=== PATIENT | female | born 1980 | race Caucasian/White ===

== ENCOUNTER → 2017-09-01 | Outpatient (CLI) | payer BC ==
[~2017-09-01] MED LIST: ACHD5005 PO; AMOX-355 PO; FLUT9.9S NS; HYOS-20 PO; PRD20T PO; PREN1TAB39
--- NOTE | 2017-09-01 16:00 | Diagnostic Imaging Report ---
INDICATION: Right leg pain and swelling. EXAMINATION: Multiple views of the right tibia and fibula were obtained at 4:08 p.m. FINDINGS: Alignment at the knee and ankle is normal. The tibia and fibula are intact. No fractures are seen. Soft tissues are unremarkable. IMPRESSION: No acute abnormality is detected. Dictated by: Dictated on workstation # [id number]
--- NOTE | 2017-09-01 16:29 | Diagnostic Imaging Report ---
INDICATION: Leg pain TECHNIQUE: Grayscale with color-flow and Doppler waveform evaluation of the right lower extremity deep venous system. CORRELATION STUDY: None FINDINGS: Color and grayscale sonographic images demonstrate no intraluminal defect within the visualized portion of the common femoral, superficial femoral and/or popliteal veins to suggest thrombus formation. These vessels demonstrate normal response to compression and augmentation. No soft tissue fluid collection. IMPRESSION: 1. Negative for deep venous thrombosis of the right leg. Dictated by: Dictated on workstation # [id number]
--- NOTE | 2017-09-02 08:35 | Diagnostic Imaging Report ---
INDICATION: Right knee pain and swelling. EXAMINATION: Three views of the right knee were obtained at 4:08 p.m. FINDINGS: The alignment is normal. The joint spaces are well maintained. The articular surfaces are smooth. No fracture, dislocation or effusion is seen. There is a linear sclerotic focus in the distal femur which appears benign. IMPRESSION: No acute abnormality is detected. Dictated by: Dictated on workstation # [id number]
== END ==
LOC: RAD 15:33
PROVIDERS: ATTEND Nurse Practitioner Family
DX: M79.604 Pain in right leg (principal); R22.41 Localized swelling, mass and lump, right lower limb
CPT/HCPCS: 73562; 73590

== ENCOUNTER → 2017-09-06 | Outpatient (CLI) | payer BC ==
--- NOTE | 2017-09-06 10:27 | Diagnostic Imaging Report ---
INDICATION: Bilateral leg cyanosis. Bilateral ankle-brachial indices were performed utilizing segmental pressures of the brachial arteries and posterior tibial and dorsalis pedis arteries. The waveforms are unremarkable. Ankle brachial indices are normal bilaterally measuring 1.34 on the right and 1.35 on the left. IMPRESSION: Normal bilateral ankle brachial indices. Dictated by: Dictated on workstation # [id number]
== END ==
LOC: RAD 08:48
PROVIDERS: ATTEND Family Medicine
DX: R23.0 Cyanosis (principal)
CPT/HCPCS: 93922

== ENCOUNTER → 2018-11-08 | Outpatient (CLI) | payer BC ==
--- NOTE | 2018-11-08 10:16 | Diagnostic Imaging Report ---
INDICATION: Right upper quadrant pain. TECHNIQUE: Multiple grayscale sonographic images were obtained of the right upper quadrant of the abdomen. CORRELATION STUDY: None FINDINGS: LIVER: There is uniform echotexture within the visualized portions of the liver. There is normal, hepatopedal direction of flow within the main portal vein. Liver enlarged at 20 cm. GALLBLADDER: The gallbladder demonstrates no definitive shadowing gallstones. No abnormal gallbladder wall thickening or pericholecystic fluid. COMMON BILE DUCT: Not visualized. No overt bile duct dilatation. PANCREAS: Visualized portions appearing unremarkable. RIGHT KIDNEY: Measures 12.6 x 5.9 x 4.6 cm. No hydronephrosis. AORTA/IVC: Not well visualized. OTHER: None. IMPRESSION: 1. Negative appearing right upper quadrant abdominal ultrasound. 2. Hepatomegaly. Dictated by: Dictated on workstation # [id number]
== END ==
LOC: RAD 08:33
PROVIDERS: ATTEND Family Medicine
DX: R16.0 Hepatomegaly, not elsewhere classified (principal); R10.11 Right upper quadrant pain
CPT/HCPCS: 76705

== ENCOUNTER 2020-01-02 12:14 | Outpatient (RCR) | payer BC | END 2020-04-01 | disposition home or self-care (01) | LOC: PREOP 12:14 | PROVIDERS: ATTEND Surgery | DX: Z01.818 Encounter for other preprocedural examination (principal) ==

== ENCOUNTER → 2020-01-04 | Outpatient (CLI) | payer BC ==
--- NOTE | 2020-01-04 09:05 | Diagnostic Imaging Report ---
PROCEDURE: US Gallbladder. TECHNIQUE: Multiple real-time grayscale images were obtained over the right upper quadrant in various projections. INDICATION: Epigastric abdominal pain. The liver is upper limits of normal in size 17.7 cm. No discrete liver mass is detected. The portal vein is patent and shows normal direction of flow. Gallbladder is without stones or sludge. No wall thickening or biliary duct dilatation is identified. The pancreas is unremarkable. Aorta is nonaneurysmal. IVC is patent. The right kidney is without calculi or hydronephrosis. No ascites. IMPRESSION: Unremarkable gallbladder ultrasound. Dictated by: Dictated on workstation # [id number]
== END ==
LOC: RAD 08:07
PROVIDERS: ATTEND Surgery
DX: R10.13 Epigastric pain (principal)
CPT/HCPCS: 76705

== ENCOUNTER → 2020-01-08 | Outpatient (CLI) | payer BC ==
[~2020-01-08] MED LIST changes: +CATHETER FLUSH 10 ML SYR IV PRN
--- NOTE | 2020-01-08 16:57 | Diagnostic Imaging Report ---
INDICATION: Right upper quadrant abdominal pain. TECHNIQUE: The Nuclear hepatobiliary study was performed in the routine fashion with intravenous injection of 5.31 mCi of technetium 99m Choletec. FINDINGS: There is prompt uptake of the tracer by the liver. Tracer is visualized in the biliary tree within 10 to 15 minutes. Tracer is visualized in the gallbladder within 10 to 15 minutes. Tracer is seen in the small bowel within 45 minutes. The patient was then given Ensure orally. The gallbladder ejection fraction was calculated. The calculated gallbladder ejection fraction was 84 percent. IMPRESSION: Normal Nuclear hepatobiliary study with normal gallbladder ejection fraction. Dictated by: Dictated on workstation # [id number]
== END ==
LOC: CARD 12:23
PROVIDERS: ATTEND Surgery
DX: R10.13 Epigastric pain (principal)
CPT/HCPCS: 78227; A9537

== ENCOUNTER → 2020-01-12 | Outpatient (CLI) | payer BC ==
[~2020-01-12] MED LIST changes: +HOLD METFORMIN - RECEIVED CONTRAST 20 ML VIAL IV SCH; +IOHEXOL 350 MG/ML 100 ML (OMNIPAQUE 350) VIAL IV ONE; +NS 100 ML (IVPB) BAG IV ONE
--- NOTE | 2020-01-12 11:05 | Diagnostic Imaging Report ---
PROCEDURE: CT abdomen and pelvis with contrast. TECHNIQUE: Multiple contiguous axial images were obtained through the abdomen and pelvis after administration of intravenous contrast. Auto Exposure Controls were utilized during the CT exam to meet ALARA standards for radiation dose reduction. INDICATION: Left lower quadrant abdominal pain. Nausea and vomiting. COMPARISON: None FINDINGS: Included portions of lung bases are clear. CT ABDOMEN: Large amount of air and stool seen scattered throughout the colon. Normal appendix is identified. Small bowel loops are nondistended. Kidneys, adrenal glands, spleen, pancreas, and liver have a normal CT appearance. There is no loculated fluid collection, free fluid, nor free air within the abdomen. No abnormal mesenteric or retroperitoneal adenopathy is seen. Osseous structures show no acute abnormalities. CT PELVIS: Urinary bladder is unopacified. No calculi are seen within urinary bladder. There is trace free fluid within the pelvis. No loculated fluid collection or free air is identified. No abnormal lymph nodes are seen. There is probable collapsing right ovarian follicle or cyst measures 1.9 x 1.4 cm (image 64, series 2). Evaluation of the osseous structures demonstrates subtle hypodensity within the posterior left iliac that measures 1 x 0.6 cm. Margins appear fairly well-circumscribed. Overlying cortex is intact. No other lytic or blastic osseous lesions are seen throughout the remainder of the exam IMPRESSION: 1. Large amount of air and stool within the colon. Please correlate for constipation. 2. Small amount of free fluid within the pelvis; likely physiologic. 3. Probable collapsing right ovarian follicle or cyst. 4. Lucency of the left iliac bone. Nonaggressive appearance is favored, but correlation with pre and post contrast MR of the pelvis is recommended for complete characterization. Dictated by: Dictated on workstation # [id number]
== END ==
LOC: RAD 07:45
PROVIDERS: ATTEND Surgery
DX: R10.32 Left lower quadrant pain (principal); R11.2 Nausea with vomiting, unspecified
CPT/HCPCS: 74177

== ENCOUNTER → 2020-01-19 | Outpatient (CLI) | payer BC ==
[~2020-01-19] MED LIST changes: -CATHETER FLUSH 10 ML SYR IV PRN; +GADOBUTROL 7.5 MMOL/7.5 ML (GADAVIST) VIAL IV ONE; -HOLD METFORMIN - RECEIVED CONTRAST 20 ML VIAL IV SCH; -IOHEXOL 350 MG/ML 100 ML (OMNIPAQUE 350) VIAL IV ONE; -NS 100 ML (IVPB) BAG IV ONE
--- NOTE | 2020-01-19 11:25 | Diagnostic Imaging Report ---
PROCEDURE: MRI pelvis with and without contrast. TECHNIQUE: Multiplanar, multisequence MRI of the pelvis was performed with and without contrast. INDICATION: Left lower quadrant pain. Further evaluation of left iliac lesion seen on CT. COMPARISON: CT abdomen and pelvis of 01/12/2020. FINDINGS: Within the central aspect left iliac wing, there is no abnormal T1 hypointense marrow replacement or T2 hyperintensity would suggest an aggressive lesion. No pathologic enhancement is seen within the skeletal structures of the pelvis. No osteonecrosis of femoral head. No sacral insufficiency fracture. Bilateral distal iliopsoas tendons are intact. Proximal hamstring complexes are normal. Very minimal tendinopathy of the right gluteus minimus at its distal insertion. Gluteus medias and minimus on the left are normal. No peritrochanteric fluid collection to indicate bursitis. Adductor musculature is normal. No free pelvic fluid. IMPRESSION: 1. No abnormality by MRI in the left iliac region that would indicate a neoplastic process. 2. Therefore, the lucent lesion seen on MRI and this should be considered incidental finding and not a source of pain. This most likely a benign fiber osseous abnormality. No dedicated follow-up imaging of this lesion is warranted due to benign imaging characteristics. Dictated by: Dictated on workstation # [id number]
== END ==
LOC: RAD 07:58
PROVIDERS: ATTEND Nurse Practitioner Family
DX: M89.8X8 Other specified disorders of bone, other site (principal); R10.32 Left lower quadrant pain
CPT/HCPCS: 72197

== ENCOUNTER → 2020-07-24 | Outpatient (CLI) | payer BC ==
[~2020-07-24] MED LIST changes: -GADOBUTROL 7.5 MMOL/7.5 ML (GADAVIST) VIAL IV ONE
--- NOTE | 2020-07-24 11:46 | Diagnostic Imaging Report ---
INDICATION: Routine screening. Comparison is made prior mammogram from 04/17/2014. 2-D and 3-D bilateral screening mammography was performed with CAD. Both breasts are heterogeneously dense, limiting the sensitivity of mammography. No mass or malignant appearing microcalcifications are seen. Axillae are unremarkable. IMPRESSION: BI-RADS Category 1 No mammographic features suspicious for malignancy are identified. ACR BI-RADS Category 1: Negative. Result letter will be mailed to the patient. Note: At least 10% of breast cancer is not imaged by mammography. Dictated by: Dictated on workstation # [id number]
== END ==
LOC: RAD 09:38
PROVIDERS: ATTEND Obstetrics & Gynecology
DX: Z12.31 Encounter for screening mammogram for malignant neoplasm of breast (principal)
CPT/HCPCS: 77063; 77067

== ENCOUNTER → 2021-04-14 | Outpatient (CLI) | payer BC | LOC: LABNPT 06:10 | PROVIDERS: ATTEND Obstetrics & Gynecology | DX: Z01.812 Encounter for preprocedural laboratory examination (principal); Z20.822 Contact with and (suspected) exposure to COVID-19 | CPT/HCPCS: 87635 ==

== ENCOUNTER → 2021-09-01 | Outpatient (CLI) | payer BC ==
--- NOTE | 2021-09-01 18:44 | Diagnostic Imaging Report ---
EXAMINATION: Right foot radiographs, 3 views. COMPARISON: None. HISTORY: 41-year-old female, right medial foot pain. FINDINGS: There is no identified acute fracture. There is no periosteal reaction. There is no subluxation or dislocation. Joint spaces appear well-preserved. There is chronic appearing irregularity in the region of the dorsal aspect of the proximal navicular. There is no overlying soft tissue swelling. IMPRESSION: 1. Irregularity of the proximal dorsal aspect of the navicular which appears most likely long-standing without overlying soft tissue swelling. Correlation for focal pain at this site may be of benefit. Comparison with prior imaging if available may also be useful. This is not an uncommon site for an avulsion-related fracture. 2. Additional radiographic assessment of the right foot is unremarkable. Dictated by: Dictated on workstation # [id number]
== END ==
LOC: RAD 15:03
PROVIDERS: ATTEND Family Medicine
DX: M79.671 Pain in right foot (principal); M79.89 Other specified soft tissue disorders
CPT/HCPCS: 73630

== ENCOUNTER 2022-07-10 23:02 | Emergency (ER) | payer BC ==
[~2022-07-10] VITALS: Ht 162.5 cm; Wt 68.0 kg
[2022-07-10 23:10] VITALS: BP 135/88
[2022-07-10] MEDS ORDERED: CEPHALEXIN 250 MG (KEFLEX) CAP PO STA (23:25)
[2022-07-10] MEDS ORDERED: DOXYCYCLINE 100 MG (VIBRAMYCIN) TABLET PO STA (23:25)
[2022-07-10] MEDS ORDERED: DOXY100T2 PO (23:31)
[2022-07-10] MEDS ORDERED: CEPH500T PO (23:31)
--- NOTE | 2022-07-10 23:31 | ED Lower Extremity ---
General Chief Complaint: Lower Extremity Stated Complaint: RIGHT LEG PAIN Nursing Triage Note: Pt presents with c/o RLE pain and swelling. Pt reports that she was positive for covid last week and developed the leg pain and swelling today. Her doctor advised her to come to ER to r/o blood clot in leg. Source: patient Exam Limitations: no limitations History of Present Illness Date Seen by Provider: Jul 10, 2022 Time Seen by Provider: 23:05 Initial Comments 42-year-old female presenting for right lower extremity pain and minimal swelling with redness. Started earlier this morning with redness spreading across her right zarate. Has never had this happen before. Denies any fever, chest pain, shortness of breath, prior history of DVT or PE, recent surgery, recent long travel, does not take any hormones, no hemoptysis. Did have COVID diagnosed about a week ago. Is currently on azithromycin for an ear infection. Otherwise denying any other acute complaints. Allergies and Home Medications Allergies Coded Allergies: No Known Drug Allergies (Unverified Allergy, Mild, 05/21/09) Patient Home Medication List Home Medication List Reviewed: Yes Amoxicillin/Potassium Clav (Augmentin 500-125 Tablet) 1 Each Tablet, 1 EACH PO BID Prescribed by: JOYCE MONTAÑO on 05/30/15 1055 Hydrocodone Bit/Acetaminophen (Lortab 5 Mg Tablet) 1 Each Tablet, 1-2 EACH PO Q4H PRN for PAIN Prescribed by: JOYCE MONTAÑO on 05/30/15 1055 Hyoscyamine Sulfate (Hyoscyamine Sulfate) 0.125 Mg Tablet, 0.125 MG PO DAILY, (Reported) Entered as Reported by: ALEX ALMONTE on 05/27/15 0958 Prednisone (Prednisone) 20 Mg Tab, 20 MG PO UD Prescribed by: JOYCE MONTAÑO on 05/30/15 1055 Review of Systems Constitutional: No fever EENTM: no symptoms reported Respiratory: no symptoms reported Cardiovascular: no symptoms reported Gastrointestinal: no symptoms reported Genitourinary: no symptoms reported Musculoskeletal: no symptoms reported Skin: see HPI Psychiatric/Neurological: No Symptoms Reported All Other Systems Reviewed Negative Unless Noted: Yes Past Ytjxeou-Vudmpd-Xtrotr Hx Patient Social History Tobacco Use?: No Immunizations Up To Date Influenza Vaccine Up-to-Date: No; Not Current Past Medical History Reproductive Disorders: No Physical Exam Vital Signs Vital Signs - First Documented 07/10/22 23:10 Temp 37.5 Pulse 89 Resp 16 B/P (MAP) 135/88 (104) Capillary Refill : Less Than 3 Seconds Height, Weight, BMI Height: 5'4.00" Weight: 150lbs. 0.0oz. 68.848748gs; 25.00 BMI Method: General Appearance: WD/WN, no apparent distress HEENT: PERRL/EOMI, normal ENT inspection, pharynx normal Neck: non-tender, full range of motion, supple, normal inspection Cardiovascular: regular rate, rhythm, no edema, no murmur Respiratory: chest non-tender, lungs clear, normal breath sounds, no respiratory distress, no accessory muscle use Gastrointestinal: normal bowel sounds, non tender, soft; No distended, No guarding, No rebound Back: normal inspection, no CVA tenderness Legs: right leg other (Erythema to the right lateral zarate that is blanching, no pain with calf squeeze, no edema or swelling, normal distal pulses and sensation) Neurologic/Tendon: normal sensation, normal motor functions Neurologic/Psychiatric: no motor/sensory deficits, alert, normal mood/affect Skin: warm/dry, rash Progress/Results/Core Measures Results/Orders Vital Signs/I&O 07/10/22 23:10 Temp 37.5 Pulse 89 Resp 16 B/P (MAP) 135/88 (104) Blood Pressure Mean: 104 Progress Progress Note : Progress Note 42-year-old female with above history coming in due to right leg redness and pain. ABCs were intact and vitals were stable on presentation. Physical exam more consistent with cellulitis to her right lower extremity which is painful to even light touch over the red skin. No pain with squeezing her calf. I personally did a [id number] ultrasound showing completely compressible f emoral vein and popliteal vessels as well making DVT less likely. I discussed with the patient that this appears to be cellulitic in nature to me. Considered lab work such as a CBC and inflammatory markers, but the patient is nontoxic- appearing and does not appear to be systemic at this time, so we will forego lab work for now. I discussed that the azithromycin likely would not cover the culprit and we will transition her to a different antibiotic. He received oral antibiotics here in the ER. I discussed if she is not having improvement by Wednesday to call her doctor or come back to the ER. Departure Impression Primary Impression: Cellulitis Qualified Codes: L03.115 - Cellulitis of right lower limb Disposition: HOME, SELF-CARE Condition: Stable Departure-Patient Inst. Decision time for Depature: 23:30 Referrals: SARABJIT ROJAS DO (PCP/Family) Primary Care Physician Patient Instructions: Cellulitis (Skin Infection), Adult (DC) Add. Discharge Instructions: Your skin appears infected. You will be on 2 different antibiotics for the next 10 days. It is okay to go ahead and stop the antibiotic you are currently taking. If you are not seeing some improvement by Wednesday, then call Dr. ROJAS's office. If you cannot get a hold of her, then you can come back to the ER. Take ibuprofen and/or Tylenol as needed for pain. Of course if you develop any severe chest pain or severe shortness of breath before then, please come back to the ER. Scripts Cephalexin (Cephalexin) 500 Mg Tablet 500 MG PO QID for 10 Days, #40 TAB Prov: LIZZIE ZABALA MD 07/10/22 Doxycycline Hyclate (Doxycycline Hyclate) 100 Mg Tablet 100 MG PO BID for 10 Days, #20 TAB 0 Refills Prov: LIZZIE ZABALA MD 07/10/22 Work/School Note: Work Release Form Date Seen in the Emergency Department: Jul 10, 2022 Return to Work: Jul 12, 2022 Restrictions: No Restrictions LIZZIE ZABALA MD Jul 10, 2022 23:31
== END 2022-07-10 23:36 | disposition home or self-care (01) ==
LOC: EDUNIT# 23:02 → ER 23:04
DX: L03.115 Cellulitis of right lower limb (principal); Z86.16 Personal history of COVID-19
CPT/HCPCS: 99283